=== PATIENT | male | born 1995 | race Hispanic/Latino ===

== ENCOUNTER 2018-10-27 12:04 | Outpatient (CLI) | payer OTHER ==
--- NOTE | 2018-10-27 14:38 | RAD ---
PA AND LATERAL CHEST: Date: 10/27/18 HISTORY: Injury to chest wall. Dropped a 25 lb weight on chest last week and continues to have chest pain. FINDINGS: Cardiac silhouette and pulmonary vasculature are within normal limits. There is motion on the lateral view, but the lungs are clear. No obvious fracture is seen. IMPRESSION: No acute cardiopulmonary process. POS: [facility]
--- NOTE | 2018-10-27 15:50 | RAD ---
THREE VIEWS RIGHT RIBS: DATE: 10/27/2018. HISTORY: Injury to chest wall. The patient dropped a 25-pound weight on right chest last week and continues t o have pain. FINDINGS: The right lung is clear. No right-sided rib fracture is seen. IMPRESSION: No acute findings involving the right chest, and no right-sided rib fracture is appreciated on this e xam. POS: [facility]
== END 2018-10-27 12:05 | disposition home or self-care (01) ==
LOC: BICRAD 12:04
DX: S29.9XXA Unspecified injury of thorax, initial encounter (principal)
CPT/HCPCS: 71046